=== PATIENT | female | born 1980 | race Caucasian/White ===

== ENCOUNTER 2017-03-23 12:07 | Emergency (ER) | payer OTHER ==
[~2017-03-23] VITALS: Ht 152.4 cm; Wt 89.2 kg
[~2017-03-23 12:07] MED LIST: CHANTIX1 MG PO; ENDOCET 5-3251 EACH PO; FLINTSTONES CO1 EAC1 PO; GUMMIES CHILDR1 EACH PO; IBUPROFEN800 MG PO; IMITREX25 MG PO; NOHOMEMEDS; PRENATAL TABLE1 EAC3 PO; PROMETHAZINE HC25 M1 PO; REGLAN10 MG PO; TYLENOL REGULA325 MG PO; VICODIN 5-3001 EACH PO
[2017-03-23 12:34] VITALS: BP 165/102
== END 2017-03-23 13:28 | disposition left against medical advice (07) ==
LOC: EME 12:07
DX: R51 Headache (principal); H53.8 Other visual disturbances; Z53.21 Procedure and treatment not carried out due to patient leaving prior to being seen by health care provider

== ENCOUNTER 2017-03-28 10:23 | Emergency (ER) | payer OTHER ==
[~2017-03-28] VITALS: Ht 152.4 cm; Wt 89.1 kg
[2017-03-28 14:07] LABS: CHLORIDE 105 mEq/L (99-109); POTASSIUM 4.1 mEq/L (3.7-5.4); SODIUM 140 mEq/L (136-147)
[2017-03-28 14:09] LABS: GLUCOSE 108 mg/dL (70-99)
[2017-03-28 14:12] LABS: CREATININE 0.8 mg/dL (0.6-1.3); GFR ESTIMATE (CALCULATED) > 59 mL/min/
[2017-03-28 14:13] LABS: UREA NITROGEN (BUN) 12 mg/dL (9-23)
[2017-03-28 15:38] LABS: HEMATOCRIT 37.9 % (36.0-46.0); HEMOGLOBIN 12.7 G/DL (11.9-15.5); MCH 29.1 PG (29.0-34.0); MCHC 33.5 G/DL (30.0-36.0); MCV 86.9 FL (83-99); PLATELET COUNT 339 K/uL (156-360); RBC DIS.WIDTH-CV 13.2 % (11.8-14.6); RBC DIS.WIDTH-SD 41.1 % (39-53); RED BLOOD COUNT 4.36 M/uL (3.80-5.20); WHITE BLOOD COUNT 9.9 K/uL (4.1-10.2)
[2017-03-28 15:49] LABS: ERTH.SED.RATE 31 MM/HR (0-20)
[2017-03-28] MEDS ORDERED: NORCO 5/3251 TABLET PO (17:00)
[2017-03-28 17:13] VITALS: BP 133/84
== END 2017-03-28 17:14 | disposition home or self-care (01) ==
LOC: EME 10:23
PROVIDERS: Physician Assistant
DX: G90.01 Carotid sinus syncope (principal); R51 Headache; R22.1 Localized swelling, mass and lump, neck; G43.909 Migraine, unspecified, not intractable, without status migrainosus; Z87.891 Personal history of nicotine dependence
CPT/HCPCS: 70491; 80048; 85027; 85652; 86140; 99281; 99285; J7040